=== PATIENT | male | born 1975 | race Caucasian/White ===

== ENCOUNTER 2019-01-14 17:28 | Emergency (ER) | payer OTHER ==
[2019-01-14] MEDS ORDERED: hydrOXYzine HCL 25 MG TABLET (FP) PO ONE ×2 (17:40→18:30)
--- NOTE | 2019-01-14 17:40 | PDOC ---
Rapid Medical Evaluation Time Seen by Provider: 01/14/19 17:39 Medical Evaluation: Allergies Allergy/AdvReac Type Severity Reaction Status Date / Time No Known Allergies Allergy Verified 06/10/15 18:16 01/14/19 17:39 I have performed a brief in-person evaluation of this patient. The patient presents with a chief complaint of: bug bites Pertinent physical exam findings: multiple insect bites to arms and torso I have ordered the following: benadryl The patient will proceed to the ED for further evaluation. Discharge Disposition - Diagnosis Insect bites - Referrals - Patient Instructions - Post Discharge Activity
[2019-01-14 17:42] VITALS: BP 141/87; PULSE 97; TEMP 98.5; BMI 34.2
[2019-01-14] MEDS ORDERED: DEXAMETHASONE 4 MG TABLET (FP) PO ONE (18:27)
[2019-01-14] MEDS ORDERED: DEXAMETHASONE SOD PHOSPHATE 10 MG/1 ML VIAL ONE (18:29)
--- NOTE | 2019-01-14 18:37 | PDOC ---
History of Present Illness - General Chief Complaint: Rash Stated Complaint: RASH Time Seen by Provider: 01/14/19 17:39 - History of Present Illness Initial Comments: 01/14/19 18:28 CHIEF COMPLAINT: insect bites HISTORY OF PRESENT ILLNESS: 43 yo M presents to [facility] with insect bites x 4 days. 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 He reports multiple bites "all over." Denies pain, fever, chills, nausea, vomiting. No recent travel or sick contacts. PAST MEDICAL HISTORY: Denies past medical history FAMILY HISTORY: Denies SOCIAL HISTORY: Denies tobacco, alcohol, illicit drug use. SURGICAL HISTORY: Denies ALLERGIES: No known drug allergies REVIEW OF SYSTEMS General/Constitutional: Denies fever or chills. Denies weakness, weight change. HEENT: Denies change in vision. Denies ear pain or discharge. Denies sore throat. Cardiovascular: Denies chest pain or shortness of breath. Respiratory: Denies cough, wheezing, or hemoptysis. Gastrointestinal: Denies nausea, vomiting, diarrhea or constipation. Denies rectal bleeding. Genitourinary: Denies dysuria, frequency, or change in urination. Musculoskeletal: Denies joint or muscle swelling or pain. Denies neck or back pain. Skin: "I got a bunch of bug bites." Neurologic: Denies headache, vertigo, loss of consciousness, or loss of sensation. PHYSICAL EXAM General Appearance: Well-appearing, appropriately dressed. No apparent distress , no intoxication. HEENT: EOMI, PERRLA, normal ENT inspection, normal voice, TMs normal, pharynx normal. No conjunctival pallor. No photophobia, scleral icterus. Neck: Supple. Trachea midline. No tenderness, rigidity, carotid bruit, stridor , lymphadenopathy, or thyromegaly. Respiratory/Chest: Lungs CTAB. No shortness of breath, chest tenderness, respiratory distress, accessory muscle use. No crackles, rales, rhonchi, stridor , wheezing, dullness Cardiovascular: RRR. S1, S2. No JVD, murmur, bradycardia, tachycardia. Vascular Pulses: Dorsalis-Pedis (R): 2+, Dorsalis-Pedis (L): 2+ Gastrointestinal/Abdominal: Normal bowel sounds. Abdomen soft, non-distended. No tenderness or rebound tenderness. No organomegaly, pulsatile mass, guarding , hernia, hepatomegaly, splenomegaly. Musculoskeletal/Extremities: Normal inspection. FROM of all extremities, normal capillary refill. Pelvis Stable. No CVA tenderness. No tenderness to extremities, pedal edema, swelling, erythema or deformity. Integumentary: Scattered erythematous papules to entire body, a few excoriated. Appropriate color, dry, warm. No cyanosis, erythema, jaundice or rash Neurologic: wood inspector II-XII intact. Fully oriented, alert. Appropriate mood/affect. Motor strength 5/5. No appreciable EOM palsy, facial droop or sensory deficit. Past History - Past Medical History Allergies/Adverse Reactions: Allergies Allergy/AdvReac Type Severity Reaction Status Date / Time No Known Allergies Allergy Verified 01/14/19 17:42 Home Medications: Ambulatory Orders Azithromycin [Zithromax 250mg Tablets -] 250 mg PO UTDICT #6 tab 06/10/15 Guaifenesin Dm [Robitussin Dm -] 10 ml PO Q6H PRN #100 ml 06/10/15 Loratadine [Claritin -] 10 mg PO DAILY #7 tablet 06/10/15 Testosterone [Androgel] 2.5 gm TD BID 06/10/15 Triamcinolone 0.1% Cream [Aristocort 0.1% Cream -] 1 applic TP QID PRN #1 tube 01/14/19 COPD: No Diabetes: Yes Hypercholesterolemia: Yes - Suicide/Smoking/Psychosocial Hx Smoking Status: No Smoking History: Never smoked Number of Cigarettes Smoked Daily: 0 Information on smoking cessation initiated: No Hx Alcohol Use: No Drug/Substance Use Hx: No Substance Use Type: None *Physical Exam - Vital Signs Last Vital Signs Temp Pulse Resp BP Pulse Ox 98.5 F 97 H 19 141/87 100 01/14/19 17:39 01/14/19 17:39 01/14/19 17:39 01/14/19 17:39 01/14/19 17:39 Medical Decision Making - Medical Decision Making 01/14/19 18:37 43 yo M presents to [facility] with insect bites. -hydroxyzine -decadron Advised patient to use medication as prescribed and of signs and symptoms for return to ER. Patient verbalized understanding and agrees to plan. *DC/Admit/Observation/Transfer Diagnosis at time of Disposition: Insect bites Qualifiers: Encounter type: initial encounter - Discharge Dispostion Disposition: HOME Condition at time of disposition: Stable Decision to Admit order: No - Prescriptions Prescriptions: Triamcinolone 0.1% Cream [Aristocort 0.1% Cream -] 1 applic TP QID PRN #1 tube PRN Reason: For Itching - Referrals Referrals: Husam Vidal [Primary Care Provider] - - Patient Instructions Printed Discharge Instructions: DI for Insect Bites and Stings Additional Instructions: Please use medication as prescribed. As discussed, it would be best to have an cryptozoologist evaluate both your workplace and home to find out what kind of insects are causing your bites. If you develop fever, chills, nausea, vomiting , or you develop swelling, redness, or pain to the sites of your bites, please return to the ER. - Post Discharge Activity
== END 2019-01-14 19:05 | disposition home or self-care (01) ==
LOC: JERFT 17:28
DX: S40.869A Insect bite (nonvenomous) of unspecified upper arm, initial encounter (principal); Y93.9 Activity, unspecified; Y92.9 Unspecified place or not applicable
CPT/HCPCS: 99281-25